=== PATIENT | male | born 1935 | race African-American/Black ===

== ENCOUNTER 2017-01-30 07:17 | Day surgery (SDC) | payer BC, OTHER ==
[~2017-01-30] VITALS: Ht 167.6 cm; Wt 70.3 kg
[~2017-01-30 07:17] MED LIST: CEFAZOLIN 1 GM IVPB PREMIX 50 ML IV ONE
[2017-01-30] MEDS ORDERED: NS 500 ML BAG IV ONE (10:28)
[2017-01-30] MEDS ORDERED: SEVOFLURANE 15 MIN GAS INH ONE (10:28)
[2017-01-30] MEDS ORDERED: ONDANSETRON HCL 4 MG/2 ML VIAL IVP ONE (10:28)
[2017-01-30] MEDS ORDERED: NS 1000 ML BAG IV ONE (10:28)
[2017-01-30] MEDS ORDERED: BUPIVACAINE /EPINEPHRINE/PF 0.25% 30 ML VIAL INJ ONE (10:28)
[2017-01-30] MEDS ORDERED: fentaNYL CITRATE/PF 100 MCG/2 ML AMP IVP ONE (10:28)
[2017-01-30] MEDS ORDERED: MIDAZOLAM HCL 5 MG/5 ML VIAL IVP ONE (10:28)
[2017-01-30] MEDS ORDERED: PROPOFOL 200MG/ 20ML VIAL (DIPRIVAN) IV ONE (10:28)
[2017-01-30] MEDS ORDERED: KETOROLAC TROMETHAMINE 30 MG VIAL IVP ONE (10:28)
[2017-01-30] MEDS ORDERED: NACL 0.9% 1,000 ML IV SCH (11:03)
[2017-01-30] MEDS ORDERED: POLYMYXIN 500,000/BACIT.10,000 UNITS in NS IRR 1 L IR ONE ×2 (11:13→12:18)
[2017-01-30] MEDS ORDERED: ONDANSETRON HCL 4 MG/2 ML VIAL IVP PRN (11:15)
[2017-01-30] MEDS ORDERED: MORPHINE 4 MG/ML INJ. SYRINGE IVP PRN (11:15)
[2017-01-30] MEDS ORDERED: HYDROmorphone 1 MG INJ. 1 MG/ML AMPUL IVP PRN (12:45)
[2017-01-30] MEDS ORDERED: HYDROcodone/ACETAMIN 5-325 MG TAB (NORCO/ VICODIN) PO PRN ×2 (12:45)
[2017-01-30] MEDS ORDERED: D5/0.45 NS 1,000 ML IV SCH (14:00)
[2017-01-30 14:12] VITALS: BP_SYST 139
== END 2017-01-30 15:05 | disposition home or self-care (01) ==
LOC: SMU 07:17 → SDS 07:17 → SMU 08:46 → SDS 15:05
PROVIDERS: ATTEND Colon & Rectal Surgery
DX: K42.0 Umbilical hernia with obstruction, without gangrene (principal); K40.31 Unilateral inguinal hernia, with obstruction, without gangrene, recurrent; K40.30 Unilateral inguinal hernia, with obstruction, without gangrene, not specified as recurrent; K41.30 Unilateral femoral hernia, with obstruction, without gangrene, not specified as recurrent; I12.0 Hypertensive chronic kidney disease with stage 5 chronic kidney disease or end stage renal disease; N18.6 End stage renal disease; Z99.2 Dependence on renal dialysis; K22.10 Ulcer of esophagus without bleeding; E74.39 Other disorders of intestinal carbohydrate absorption; D50.9 Iron deficiency anemia, unspecified; C61 Malignant neoplasm of prostate; Z98.890 Other specified postprocedural states; Z87.891 Personal history of nicotine dependence; K21.9 Gastro-esophageal reflux disease without esophagitis; M19.90 Unspecified osteoarthritis, unspecified site; Z79.899 Other long term (current) drug therapy
CPT/HCPCS: 36415; 49507; 49521; 49553; 49587; 84132; 88302; C1781 ×3; J0690; J1885; J2250; J2405; J2704; J3010; J3490; J7030; J7040; J7120